=== PATIENT | female | born 1950 | race Caucasian/White ===

== ENCOUNTER 2023-02-18 04:28 | Emergency (ER) | payer MEDICARE, SELFPAY ==
[2023-02-18] VITALS (39 sets, daily range): BP systolic 134–179; BP diastolic 76–108; PULSE 91–112; RESP 15–24; TEMP 36.5–37.6; O2SAT 95–98; BMI 17.3
--- NOTE | 2023-02-18 04:31 | ED.GENADULT ---
HPI - General Adult <Anderson Johnson MD - Last Filed: 03/01/23 07:36> General Chief complaint: Weakness Stated complaint: not eating or drinking Time Seen by Provider: 02/18/23 04:30 History of Present Illness HPI narrative: Patient is a 73-year-old female brought in accompanied by her daughter. Patient has had generalized weakness both patient and her daughter provide history. She had been in bed for 5 days. The patient is having abdominal and left flank pain. She is becoming generally weak, patient does not think she is had significant oral intake, urine output or bowel movement in 5 days. She has chronic back pain that has become worse recently and is more noticeable on the left side. She is not had fevers or nausea or vomiting. Has not noted any urinary symptoms other than decreased urinary output. Has not had any recent falls. The patient does not presently have a primary care doctor is not on any regular prescription medications. Last week, prior to the onset of this the patient was driving and while she lives with her daughter is essentially independent. Daughter reports that she is become more confused recently. Old notes indicated polypharmacy and alcohol use, both the patient and her daughter deny any recent alcohol recreational drug or prescription drug use. No history of kidney disease identified previously no history of kidney stones. Related Data Previous Rx's Medication Instructions Recorded chlordiazepoxide HCl 25 mg capsule 25 mg PO Q8H #14 caps 04/18/17 hydrocodone 5 mg-acetaminophen 325 1 tab PO Q4HP PRN #20 tabs 04/18/17 mg tablet ([place]) naproxen 500 mg tablet (Naprosyn) 500 mg PO Q12H #20 tabs 04/18/17 Allergies Allergy/AdvReac Type Severity Reaction Status Date / Time lidocaine [LIDOCAINE] Allergy Unknown Verified 02/18/23 06:28 Patient History <Anderson Johnson MD - Last Filed: 03/01/23 07:36> Social History Smoking Status: Never smoker Exam <Anderson Johnson MD - Last Filed: 03/01/23 07:36> Narrative Exam Narrative: Cachectic appearing female, she is alert oriented to place and year but misses the month. Oral mucosa is dry. She is tachycardic and hypertensive not febrile. Initial Vital Signs Initial Vital Signs: Vital Signs Temperature 97.8 F 02/18/23 04:45 Pulse Rate 112 H 02/18/23 04:45 Respiratory Rate 22 02/18/23 04:45 Blood Pressure 179/108 H 02/18/23 04:45 Pulse Oximetry 98 02/18/23 04:45 Oxygen Delivery Method Room Air 02/18/23 04:45 HENSC Head: normocephalic and atraumatic Mouth: No moist mucous membranes Eyes Pupils: PERRL EOM: EOM intact bilaterally Neck Other: Neck is supple Resp Effort & Inspection: normal respiratory effort Auscultation: clear to auscultation bilaterally Cardio Other: Tachycardic, no murmur rub or gallop Other: Parra catheter placed on arrival has over a 1000 cc coming out. Normal external rectal exam, soft brown guaiac-positive stool in the vault. Has normal sphincter tone, normal perineal sensation guaiac-positive brown stool in the vault Back/Spine/Pelvis Other: No focal tenderness of the thoracic or lumbar spine Skin Rashes: no rashes Wounds: no wounds Neuro General: patient alert, patient awake, oriented (Place an ear), no meningeal signs and no focal motor deficits Cognition: abnormal cognition Speech: speech normal Motor: muscle tone normal throughout and strength 5/5 throughout DTR's: Rt Patellar: 2+ and Lt Patellar: 2+ Extrem General: normal to inspection Psych Mental Status: mental status grossly normal Mood: congruent mood <Nikki Diaz DO - Last Filed: 02/18/23 18:03> Initial Vital Signs Initial Vital Signs: Vital Signs Temperature 97.8 F 02/18/23 04:45 Pulse Rate 112 H 02/18/23 04:45 Respiratory Rate 22 02/18/23 04:45 Blood Pressure 179/108 H 02/18/23 04:45 Pulse Oximetry 98 02/18/23 04:45 Oxygen Delivery Method Room Air 02/18/23 04:45 Course <Anderson Johnson MD - Last Filed: 03/01/23 07:36> Orders Ordered: Discontinued Medications Sodium Chloride (Normal Saline 0.9%) 1,000 mls @ 150 mls/hr IV CONT ABRAHAM Last Infusion: 02/18/23 09:38 Dose: Infused Documented By: Infusion: 02/18/23 09:34 Dose: 0 mls/hr Documented By: Admin: 02/18/23 05:27 Dose: 150 mls/hr Documented By: BERNADINE Ceftriaxone Sodium 2,000 mg/ (Sodium Chloride) 100 mls @ 200 mls/hr IV NOW ONE Stop: 02/18/23 05:34 Last Infusion: 02/18/23 06:20 Dose: Infused Documented By: Admin: 02/18/23 05:40 Dose: 200 mls/hr Documented By: STERLING Sodium Bicarbonate 150 meq/ (Dextrose) 1,150 mls @ 200 mls/hr IV CONT ABRAHAM Last Infusion: 02/18/23 12:23 Dose: Infused Documented By: Admin: 02/18/23 06:19 Dose: 200 mls/hr Documented By: NICK Sodium Chloride (Normal Saline 0.9%) 1,000 mls @ 150 mls/hr IV CONT ABRAHAM Last Admin: 02/18/23 12:49 Dose: 150 mls/hr Documented By: KENYETTA Morphine Sulfate (Morphine 2 Mg/Ml Inj) 2 mg IV NOW ONE Stop: 02/18/23 07:34 Last Admin: 02/18/23 07:40 Dose: 2 mg Documented By: KENYETTA Morphine Sulfate (Morphine 2 Mg/Ml Inj) 2 mg IV NOW ONE Stop: 02/18/23 16:25 Last Admin: 02/18/23 16:41 Dose: 2 mg Documented By: KENYETTA Vital Signs Vital signs: Vital Signs - 8 hr 02/18/23 10:15 02/18/23 10:30 02/18/23 10:30 Temperature 98.6 F 98.6 F Pulse Rate 100 H 100 H Respiratory Rate 21 19 Blood Pressure 150/86 H Pulse Oximetry 98 98 02/18/23 10:45 02/18/23 11:00 02/18/23 11:00 Temperature 98.8 F 98.8 F Pulse Rate 101 H 101 H Respiratory Rate 22 20 Blood Pressure 154/83 H Pulse Oximetry 97 98 02/18/23 11:15 02/18/23 11:30 02/18/23 11:30 Temperature 99.0 F 99.0 F Pulse Rate 106 H 104 H Respiratory Rate 21 21 Blood Pressure 139/86 Pulse Oximetry 97 97 02/18/23 11:45 02/18/23 12:00 02/18/23 12:00 Temperature 99.0 F 99.0 F Pulse Rate 103 H 101 H Respiratory Rate 18 19 Blood Pressure 142/83 H Pulse Oximetry 97 97 02/18/23 12:15 02/18/23 12:30 02/18/23 12:30 Temperature 99.1 F 99.1 F Pulse Rate 106 H 102 H Respiratory Rate 21 20 Blood Pressure 139/86 Pulse Oximetry 96 96 02/18/23 12:45 02/18/23 13:00 02/18/23 13:00 Temperature 99.1 F 99.3 F Pulse Rate 105 H 101 H Respiratory Rate 21 19 Blood Pressure 144/76 H Pulse Oximetry 96 97 02/18/23 13:15 02/18/23 13:30 02/18/23 13:30 Temperature 99.3 F 99.3 F Pulse Rate 103 H 103 H Respiratory Rate 24 23 Blood Pressure 148/80 H Pulse Oximetry 96 96 02/18/23 13:45 02/18/23 14:00 02/18/23 14:00 Temperature 99.3 F 99.5 F Pulse Rate 102 H 103 H Respiratory Rate 21 20 Blood Pressure 137/83 Pulse Oximetry 96 97 02/18/23 14:15 02/18/23 14:30 02/18/23 14:30 Temperature 99.5 F 99.5 F Pulse Rate 102 H 99 H Respiratory Rate 21 19 Blood Pressure 141/80 H Pulse Oximetry 97 97 02/18/23 14:45 02/18/23 15:00 02/18/23 15:00 Temperature 99.5 F 99.7 F H Pulse Rate 91 H 103 H Respiratory Rate 15 19 Blood Pressure 139/79 Pulse Oximetry 96 96 02/18/23 15:15 02/18/23 15:30 02/18/23 15:30 Temperature 99.7 F H 99.7 F H Pulse Rate 103 H 104 H Respiratory Rate 18 20 Blood Pressure 147/82 H Pulse Oximetry 96 97 02/18/23 15:45 02/18/23 16:00 02/18/23 16:00 Temperature 99.7 F H 99.7 F H Pulse Rate 109 H Respiratory Rate 20 20 Blood Pressure 139/91 H Pulse Oximetry 97 97 02/18/23 16:15 02/18/23 16:30 02/18/23 16:30 Temperature 99.7 F H 99.7 F H Pulse Rate 107 H 108 H Respiratory Rate 22 22 Blood Pressure 144/98 H Pulse Oximetry 97 96 02/18/23 16:45 02/18/23 17:00 02/18/23 17:00 Temperature 99.7 F H 99.7 F H Pulse Rate 110 H 111 H Respiratory Rate 20 20 Blood Pressure 134/83 Pulse Oximetry 96 95 <Nikki Diaz, - Last Filed: 02/18/23 18:03> Orders Ordered: Discontinued Medications Sodium Chloride (Normal Saline 0.9%) 1,000 mls @ 150 mls/hr IV CONT ABRAHAM Last Infusion: 02/18/23 09:38 Dose: Infused Documented By: Infusion: 02/18/23 09:34 Dose: 0 mls/hr Documented By: Admin: 02/18/23 05:27 Dose: 150 mls/hr Documented By: BERNADINE Ceftriaxone Sodium 2,000 mg/ (Sodium Chloride) 100 mls @ 200 mls/hr IV NOW ONE Stop: 02/18/23 05:34 Last Infusion: 02/18/23 06:20 Dose: Infused Documented By: Admin: 02/18/23 05:40 Dose: 200 mls/hr Documented By: STERLING Sodium Bicarbonate 150 meq/ (Dextrose) 1,150 mls @ 200 mls/hr IV CONT ABRAHAM Last Infusion: 02/18/23 12:23 Dose: Infused Documented By: Admin: 02/18/23 06:19 Dose: 200 mls/hr Documented By: NICK Sodium Chloride (Normal Saline 0.9%) 1,000 mls @ 150 mls/hr IV CONT ABRAHAM Last Admin: 02/18/23 12:49 Dose: 150 mls/hr Documented By: KENYETTA Morphine Sulfate (Morphine 2 Mg/Ml Inj) 2 mg IV NOW ONE Stop: 02/18/23 07:34 Last Admin: 02/18/23 07:40 Dose: 2 mg Documented By: KENYETTA Morphine Sulfate (Morphine 2 Mg/Ml Inj) 2 mg IV NOW ONE Stop: 02/18/23 16:25 Last Admin: 02/18/23 16:41 Dose: 2 mg Documented By: KENYETTA Vital Signs Vital signs: Vital Signs - 8 hr 02/18/23 10:15 02/18/23 10:30 02/18/23 10:30 Temperature 98.6 F 98.6 F Pulse Rate 100 H 100 H Respiratory Rate 21 19 Blood Pressure 150/86 H Pulse Oximetry 98 98 02/18/23 10:45 02/18/23 11:00 02/18/23 11:00 Temperature 98.8 F 98.8 F Pulse Rate 101 H 101 H Respiratory Rate 22 20 Blood Pressure 154/83 H Pulse Oximetry 97 98 02/18/23 11:15 02/18/23 11:30 02/18/23 11:30 Temperature 99.0 F 99.0 F Pulse Rate 106 H 104 H Respiratory Rate 21 21 Blood Pressure 139/86 Pulse Oximetry 97 97 02/18/23 11:45 02/18/23 12:00 02/18/23 12:00 Temperature 99.0 F 99.0 F Pulse Rate 103 H 101 H Respiratory Rate 18 19 Blood Pressure 142/83 H Pulse Oximetry 97 97 02/18/23 12:15 02/18/23 12:30 02/18/23 12:30 Temperature 99.1 F 99.1 F Pulse Rate 106 H 102 H Respiratory Rate 21 20 Blood Pressure 139/86 Pulse Oximetry 96 96 02/18/23 12:45 02/18/23 13:00 02/18/23 13:00 Temperature 99.1 F 99.3 F Pulse Rate 105 H 101 H Respiratory Rate 21 19 Blood Pressure 144/76 H Pulse Oximetry 96 97 02/18/23 13:15 02/18/23 13:30 02/18/23 13:30 Temperature 99.3 F 99.3 F Pulse Rate 103 H 103 H Respiratory Rate 24 23 Blood Pressure 148/80 H Pulse Oximetry 96 96 02/18/23 13:45 02/18/23 14:00 02/18/23 14:00 Temperature 99.3 F 99.5 F Pulse Rate 102 H 103 H Respiratory Rate 21 20 Blood Pressure 137/83 Pulse Oximetry 96 97 02/18/23 14:15 02/18/23 14:30 02/18/23 14:30 Temperature 99.5 F 99.5 F Pulse Rate 102 H 99 H Respiratory Rate 21 19 Blood Pressure 141/80 H Pulse Oximetry 97 97 02/18/23 14:45 02/18/23 15:00 02/18/23 15:00 Temperature 99.5 F 99.7 F H Pulse Rate 91 H 103 H Respiratory Rate 15 19 Blood Pressure 139/79 Pulse Oximetry 96 96 02/18/23 15:15 02/18/23 15:30 02/18/23 15:30 Temperature 99.7 F H 99.7 F H Pulse Rate 103 H 104 H Respiratory Rate 18 20 Blood Pressure 147/82 H Pulse Oximetry 96 97 02/18/23 15:45 02/18/23 16:00 02/18/23 16:00 Temperature 99.7 F H 99.7 F H Pulse Rate 109 H Respiratory Rate 20 20 Blood Pressure 139/91 H Pulse Oximetry 97 97 02/18/23 16:15 02/18/23 16:30 02/18/23 16:30 Temperature 99.7 F H 99.7 F H Pulse Rate 107 H 108 H Respiratory Rate 22 22 Blood Pressure 144/98 H Pulse Oximetry 97 96 02/18/23 16:45 02/18/23 17:00 02/18/23 17:00 Temperature 99.7 F H 99.7 F H Pulse Rate 110 H 111 H Respiratory Rate 20 20 Blood Pressure 134/83 Pulse Oximetry 96 95 Medical Decision Making <Anderson Johnson MD - Last Filed: 03/01/23 07:36> Lab Data Lab results narrative: Labs are remarkable for presumed kidney injury with a high BUN to creatinine ratio and a creatinine greater than 8. Bicarbonate is 6 sodium is 131 potassium is mildly elevated at 5.8. [place] a [place] [id number]. Urinalysis has evidence of infection with positive nitrites and bacteria present Troponin is elevated, in the setting of renal failure without chest pain I suspect that this is related to her kidney failure 02/18/23 10:00 02/18/23 13:53 Labs: Lab Results 02/18/23 02/18/23 02/18/23 Range/Units 04:45 05:13 08:45 WBC 18.3 H (4.5-11.0) X10^3/uL RBC 3.87 L (4.0-5.2) X10^6/uL Hgb 11.8 L (12.0-16.0) g/dL Hct 35.5 L (36-46) % MCV 91.8 (80-100) fL MCH 30.4 (26-34) PG MCHC 33.2 (30-36) % RDW 13.1 (11.6-14.8) % Plt Count 228 (150-400) X10^3/uL Neut % (Auto) 93.2 H (50-75) % Lymph % (Auto) 1.9 L (25-40) % [place] % (Auto) 4.5 (3-14) % Eos % (Auto) 0.0 L (2-4) % Baso % (Auto) 0.4 (0-2) % Neut # (Auto) 91936 H (5613-1298) /uL Lymph # (Auto) 300 L (9411-6249) /uL [place] # (Auto) 800 (0-900) /uL Eos # (Auto) 0 (0-450) /uL Baso # (Auto) 100 (0-100) /uL PT (10.1-12.7) SECONDS INR (0.9-1.3) APTT (26-36) SECONDS Sodium 131 L 133 L (137-145) mmol/L Potassium 5.8 H 3.8 D (3.4-5.1) mmol/L Chloride 94 L 100 (98-107) mmol/L Carbon Dioxide 6 L* 15 L (22-32) mmol/L BUN 127 H* 84 H (7-17) mg/dL Creatinine 8.07 H* 4.25 H (0.52-1.04) mg/dL Estimated GFR 5 L 10 L (>60) mL/min BUN/Creatinine Ratio 15.7 19.8 (6-22) Glucose 111 H 161 H (80-110) mg/dL Lactate 1.4 (0.7-2.1) mmol/L Calcium 10.1 8.8 (8.4-10.2) mg/dL Total Bilirubin 1.3 (0.2-1.3) mg/dL AST 28 (14-36) IU/L ALT 14 (<35) IU/L Alkaline Phosphatase 97 (38-126) U/L Total Creatine Kinase 102 (30-135) U/L Troponin I 0.275 H* (0.01-0.034) ng/mL Total Protein 7.8 (6.3-8.2) g/dL Albumin 4.6 (3.5-5.0) g/dL Globulin 3.2 (1.7-4.1) g/dL Albumin/Globulin Ratio 1.4 (1.0-2.8) TSH 0.178 L (0.47-4.68) uIU/mL Urine Color Yellow Urine Appearance Cloudy Urine pH 7.0 (4.5-8.0) Ur Specific [place] 1.015 (1.000-1.035) Urine Protein 1+ H (Negative) Urine Glucose (UA) Negative (Negative) g/dL Urine Ketones Trace H (NEGATIVE) Urine Occult Blood Trace-intact (Negative) Urine Nitrate Positive H (Negative) Urine Bilirubin Negative (NEGATIVE) Urine Urobilinogen 0.2 (0.2) E.U./dL Ur Leukocyte Esterase Negative (NEGATIVE) Urine RBC None seen (0-5/HPF) Urine WBC 1-5/hpf (0-5/HPF) Ur Squamous Epith Cells 0-1 /hpf (0-5/HPF) Urine Bacteria Many (>30) H (None) U Opiates 300ng/mL cut Negative (Negative) Ur Oxycodone Screen Negative (Negative) Urine Methadone Screen Negative (Negative) Acetaminophen < 10 (10-30) ug/mL Ur Barbiturates Screen Negative (Negative) U Tricyclic Antidepress Negative (Negative) Ur Phencyclidine Scrn Negative (Negative) Ur Amphetamines Screen Negative (Negative) U Methamphetamines Scrn Negative (Negative) Ur MDMA Scrn (Ecstasy) Negative (Negative) U Benzodiazepines Scrn Negative (Negative) Urine Cocaine Screen Negative (Negative) U Marijuana (THC) Screen Negative (Negative) Ethyl Alcohol < 10 ( - 10) mg/dL 02/18/23 02/18/23 02/18/23 Range/Units 10:00 10:07 13:53 WBC (4.5-11.0) X10^3/uL RBC (4.0-5.2) X10^6/uL Hgb 10.3 L (12.0-16.0) g/dL Hct 30.2 L (36-46) % MCV (80-100) fL MCH (26-34) PG MCHC (30-36) % RDW (11.6-14.8) % Plt Count (150-400) X10^3/uL Neut % (Auto) (50-75) % Lymph % (Auto) (25-40) % [place] % (Auto) (3-14) % Eos % (Auto) (2-4) % Baso % (Auto) (0-2) % Neut # (Auto) (0536-0945) /uL Lymph # (Auto) (7733-7030) /uL [place] # (Auto) (0-900) /uL Eos # (Auto) (0-450) /uL Baso # (Auto) (0-100) /uL PT 12.5 (10.1-12.7) SECONDS INR 1.1 (0.9-1.3) APTT 24 L (26-36) SECONDS Sodium 135 L (137-145) mmol/L Potassium 3.1 L (3.4-5.1) mmol/L Chloride 103 (98-107) mmol/L Carbon Dioxide 23 (22-32) mmol/L BUN 53 H (7-17) mg/dL Creatinine 1.89 H (0.52-1.04) mg/dL Estimated GFR 28 L (>60) mL/min BUN/Creatinine Ratio 28.0 H (6-22) Glucose 112 H (80-110) mg/dL Lactate (0.7-2.1) mmol/L Calcium 8.7 (8.4-10.2) mg/dL Total Bilirubin (0.2-1.3) mg/dL AST (14-36) IU/L ALT (<35) IU/L Alkaline Phosphatase (38-126) U/L Total Creatine Kinase (30-135) U/L Troponin I (0.01-0.034) ng/mL Total Protein (6.3-8.2) g/dL Albumin (3.5-5.0) g/dL Globulin (1.7-4.1) g/dL Albumin/Globulin Ratio (1.0-2.8) TSH (0.47-4.68) uIU/mL Urine Color Urine Appearance Urine pH (4.5-8.0) Ur Specific [place] (1.000-1.035) Urine Protein (Negative) Urine Glucose (UA) (Negative) g/dL Urine Ketones (NEGATIVE) Urine Occult Blood (Negative) Urine Nitrate (Negative) Urine Bilirubin (NEGATIVE) Urine Urobilinogen (0.2) E.U./dL Ur Leukocyte Esterase (NEGATIVE) Urine RBC (0-5/HPF) Urine WBC (0-5/HPF) Ur Squamous Epith Cells (0-5/HPF) Urine Bacteria (None) U Opiates 300ng/mL cut (Negative) Ur Oxycodone Screen (Negative) Urine Methadone Screen (Negative) Acetaminophen (10-30) ug/mL Ur Barbiturates Screen (Negative) U Tricyclic Antidepress (Negative) Ur Phencyclidine Scrn (Negative) Ur Amphetamines Screen (Negative) U Methamphetamines Scrn (Negative) Ur MDMA Scrn (Ecstasy) (Negative) U Benzodiazepines Scrn (Negative) Urine Cocaine Screen (Negative) U Marijuana (THC) Screen (Negative) Ethyl Alcohol ( - 10) mg/dL Point of Care Testing Glucose POC 107 Point of care testing: Point of Care Testing Glucose POC 107 Imaging Data Chest x-ray: My Impression: Portable chest x-ray, no acute disease on my initial review of imaging Radiologist's Impression: ?bronchial wall thickening suggesting bronchitis? CT scan - abdomen/pelvis: My Impression: My initial review of the noncontrast CT abdomen and pelvis, I think she has bilateral hydronephrosis, there is mass versus extravasation of urine around the left kidney no clear ureteral stone, calcified mass in the left hemipelvis possibly ovarian CT scan - head: My Impression: Independently reviewed noncontrast head CT, no acute findings ECG Data Interpretation: EKG shows sinus tachycardia at 105 intervals are normal, T-waves are prominent raising concern for hyperkalemia no acute ischemic change 1 pair of PVCs MDM Narrative Medical decision making narrative: A 73-year-old female with chronic back pain but really no other active medical problems presenting with decreased urine output generalized weakness and confusion for about 5 days. She is not hypotensive on arrival her lactic acid is normal she is not febrile but she does have a leukocytosis. I think she has a urinary tract infection but does not appear to be septic. She had over a 1000 cc of urine in her bladder, she was not voiding spontaneously I suspect that her renal failure is related to urine retention. She has secondary hyperkalemia which is mild not clearly associated with peak T-waves and is being treated with IV bicarbonate and fluids. Her urine does show evidence of infection she was given IV ceftriaxone. <Nikki Diaz, DO - Last Filed: 02/18/23 18:03> Lab Data Labs: Lab Results 02/18/23 02/18/23 02/18/23 Range/Units 04:45 05:13 08:45 WBC 18.3 H (4.5-11.0) X10^3/uL RBC 3.87 L (4.0-5.2) X10^6/uL Hgb 11.8 L (12.0-16.0) g/dL Hct 35.5 L (36-46) % MCV 91.8 (80-100) fL MCH 30.4 (26-34) PG MCHC 33.2 (30-36) % RDW 13.1 (11.6-14.8) % Plt Count 228 (150-400) X10^3/uL Neut % (Auto) 93.2 H (50-75) % Lymph % (Auto) 1.9 L (25-40) % [place] % (Auto) 4.5 (3-14) % Eos % (Auto) 0.0 L (2-4) % Baso % (Auto) 0.4 (0-2) % Neut # (Auto) 32807 H (3770-5989) /uL Lymph # (Auto) 300 L (4411-8695) /uL [place] # (Auto) 800 (0-900) /uL Eos # (Auto) 0 (0-450) /uL Baso # (Auto) 100 (0-100) /uL PT (10.1-12.7) SECONDS INR (0.9-1.3) APTT (26-36) SECONDS Sodium 131 L 133 L (137-145) mmol/L Potassium 5.8 H 3.8 D (3.4-5.1) mmol/L Chloride 94 L 100 (98-107) mmol/L Carbon Dioxide 6 L* 15 L (22-32) mmol/L BUN 127 H* 84 H (7-17) mg/dL Creatinine 8.07 H* 4.25 H (0.52-1.04) mg/dL Estimated GFR 5 L 10 L (>60) mL/min BUN/Creatinine Ratio 15.7 19.8 (6-22) Glucose 111 H 161 H (80-110) mg/dL Lactate 1.4 (0.7-2.1) mmol/L Calcium 10.1 8.8 (8.4-10.2) mg/dL Total Bilirubin 1.3 (0.2-1.3) mg/dL AST 28 (14-36) IU/L ALT 14 (<35) IU/L Alkaline Phosphatase 97 (38-126) U/L Total Creatine Kinase 102 (30-135) U/L Troponin I 0.275 H* (0.01-0.034) ng/mL Total Protein 7.8 (6.3-8.2) g/dL Albumin 4.6 (3.5-5.0) g/dL Globulin 3.2 (1.7-4.1) g/dL Albumin/Globulin Ratio 1.4 (1.0-2.8) TSH 0.178 L (0.47-4.68) uIU/mL Urine Color Yellow Urine Appearance Cloudy Urine pH 7.0 (4.5-8.0) Ur Specific [place] 1.015 (1.000-1.035) Urine Protein 1+ H (Negative) Urine Glucose (UA) Negative (Negative) g/dL Urine Ketones Trace H (NEGATIVE) Urine Occult Blood Trace-intact (Negative) Urine Nitrate Positive H (Negative) Urine Bilirubin Negative (NEGATIVE) Urine Urobilinogen 0.2 (0.2) E.U./dL Ur Leukocyte Esterase Negative (NEGATIVE) Urine RBC None seen (0-5/HPF) Urine WBC 1-5/hpf (0-5/HPF) Ur Squamous Epith Cells 0-1 /hpf (0-5/HPF) Urine Bacteria Many (>30) H (None) U Opiates 300ng/mL cut Negative (Negative) Ur Oxycodone Screen Negative (Negative) Urine Methadone Screen Negative (Negative) Acetaminophen < 10 (10-30) ug/mL Ur Barbiturates Screen Negative (Negative) U Tricyclic Antidepress Negative (Negative) Ur Phencyclidine Scrn Negative (Negative) Ur Amphetamines Screen Negative (Negative) U Methamphetamines Scrn Negative (Negative) Ur MDMA Scrn (Ecstasy) Negative (Negative) U Benzodiazepines Scrn Negative (Negative) Urine Cocaine Screen Negative (Negative) U Marijuana (THC) Screen Negative (Negative) Ethyl Alcohol < 10 ( - 10) mg/dL 02/18/23 02/18/23 02/18/23 Range/Units 10:00 10:07 13:53 WBC (4.5-11.0) X10^3/uL RBC (4.0-5.2) X10^6/uL Hgb 10.3 L (12.0-16.0) g/dL Hct 30.2 L (36-46) % MCV (80-100) fL MCH (26-34) PG MCHC (30-36) % RDW (11.6-14.8) % Plt Count (150-400) X10^3/uL Neut % (Auto) (50-75) % Lymph % (Auto) (25-40) % [place] % (Auto) (3-14) % Eos % (Auto) (2-4) % Baso % (Auto) (0-2) % Neut # (Auto) (9633-0983) /uL Lymph # (Auto) (0427-8176) /uL [place] # (Auto) (0-900) /uL Eos # (Auto) (0-450) /uL Baso # (Auto) (0-100) /uL PT 12.5 (10.1-12.7) SECONDS INR 1.1 (0.9-1.3) APTT 24 L (26-36) SECONDS Sodium 135 L (137-145) mmol/L Potassium 3.1 L (3.4-5.1) mmol/L Chloride 103 (98-107) mmol/L Carbon Dioxide 23 (22-32) mmol/L BUN 53 H (7-17) mg/dL Creatinine 1.89 H (0.52-1.04) mg/dL Estimated GFR 28 L (>60) mL/min BUN/Creatinine Ratio 28.0 H (6-22) Glucose 112 H (80-110) mg/dL Lactate (0.7-2.1) mmol/L Calcium 8.7 (8.4-10.2) mg/dL Total Bilirubin (0.2-1.3) mg/dL AST (14-36) IU/L ALT (<35) IU/L Alkaline Phosphatase (38-126) U/L Total Creatine Kinase (30-135) U/L Troponin I (0.01-0.034) ng/mL Total Protein (6.3-8.2) g/dL Albumin (3.5-5.0) g/dL Globulin (1.7-4.1) g/dL Albumin/Globulin Ratio (1.0-2.8) TSH (0.47-4.68) uIU/mL Urine Color Urine Appearance Urine pH (4.5-8.0) Ur Specific [place] (1.000-1.035) Urine Protein (Negative) Urine Glucose (UA) (Negative) g/dL Urine Ketones (NEGATIVE) Urine Occult Blood (Negative) Urine Nitrate (Negative) Urine Bilirubin (NEGATIVE) Urine Urobilinogen (0.2) E.U./dL Ur Leukocyte Esterase (NEGATIVE) Urine RBC (0-5/HPF) Urine WBC (0-5/HPF) Ur Squamous Epith Cells (0-5/HPF) Urine Bacteria (None) U Opiates 300ng/mL cut (Negative) Ur Oxycodone Screen (Negative) Urine Methadone Screen (Negative) Acetaminophen (10-30) ug/mL Ur Barbiturates Screen (Negative) U Tricyclic Antidepress (Negative) Ur Phencyclidine Scrn (Negative) Ur Amphetamines Screen (Negative) U Methamphetamines Scrn (Negative) Ur MDMA Scrn (Ecstasy) (Negative) U Benzodiazepines Scrn (Negative) Urine Cocaine Screen (Negative) U Marijuana (THC) Screen (Negative) Ethyl Alcohol ( - 10) mg/dL Point of Care Testing Glucose POC 107 Point of care testing: Point of Care Testing Glucose POC 107 MDM Narrative Medical decision making narrative: A 73-year-old female with chronic back pain but really no other active medical problems presenting with decreased urine output generalized weakness and confusion for about 5 days. She is not hypotensive on arrival her lactic acid is normal she is not febrile but she does have a leukocytosis. I think she has a urinary tract infection but does not appear to be septic. She had over a 1000 cc of urine in her bladder, she was not voiding spontaneously I suspect that her renal failure is related to urine retention. She has secondary hyperkalemia which is mild not clearly associated with peak T-waves and is being treated with IV bicarbonate and fluids. Her urine does show evidence of infection she was given IV ceftriaxone. Dr. Diaz: Received sign-out from Dr. Johnson I have seen evaluated patient myself. She is typically very independent drives getting around until 1 week ago when she would sudden onset back pain she was unable to get and out of bed she laid in bed for 5 days. Blood work reveals acute kidney injury with a creatinine 8.0 BUN 127, potassium 5.[address] Johnson and I reviewed CT are cells there is definitely venous abnormality in the left kidney area which is where she is tender. Cancer renal rupture. However real Radiology read it as peritoneal hemorrhage. With questionable active arterial extravasation recommending a CTA. Moderate bilateral hydronephrosis. This does not clinically correlate not hypotensive hemoglobin hematocrit are actually normal. Waiting for over-read. 8:[address] Cleary, local Radiology actually agrees that this is probably some sort of hemorrhage. Difficult to tell aware of renal function. Hesitant for any sort of imaging with contrast due to acute kidney injury. 8:15 Dr. Beyer, nephrology updated patient's symptoms test results agrees to probably hold off if stable maybe wait 24 hours assess renal function. At this time can be transferred to [facility] 10am , a [facility] hospitalist updated patient's symptoms test results accepts patient waiting for bed 10:30 Dr. Bradford, hospitalist at [facility] updated patient's symptoms test results accepts patient waiting for bed Patient remains stable in the emergency department in fact blood work has improved significantly creatinine is down 1.8. She is been accepted at [facility] bed has been given and she is going to be transferred. There is still concern for retroperitoneal hematoma. No change in hemoglobin. Critical Care Time <Nikki Diaz DO - Last Filed: 02/18/23 18:03> Critical Care Time Critical Care Time: Yes Total Critical Care Time: 70 Attestation: The high probability of a clinically significant, sudden or life threatening deterioration of the [cardiovascular] system(s) required my full and direct attention, intervention and personal management. The aggregate critical care time was 70 minutes. This time is in addition to time spent performing reported procedures but includes the following: [x] Data Review and interpretation [x] Patient assessment and monitoring of vital signs [x] Documentation [x] Medication orders and management Discharge Plan Departure Patient Disposition: [facility] Clinical Impression: Retroperitoneal hematoma, Acute kidney injury Prescriptions: No Action hydrocodone-acetaminophen [[place]] 5 MG/325 MG tablet 1 tab PO Q4HP PRNQty: 20 0RF chlordiazepoxide HCl 25 MG capsule 25 mg PO Q8H Qty: 14 0RF naproxen [Naprosyn] 500 MG tablet 500 mg PO Q12H Qty: 20 0RF Referrals: Bria Min ARNP [Primary Care Provider] -
--- NOTE | 2023-02-18 04:44 | DI.CT.S_ITS ---
PROCEDURE: CT HEAD/BRAIN WO CON INDICATIONS: altered mental status TECHNIQUE: Noncontrast 4.5 mm thick angled axial sections acquired from the foramen magnum to the vertex, with coronal and sagittal reformats. For radiation dose reduction, the following was used: automated exposure control, adjustment of mA and/or kV according to patient size. COMPARISON: [facility], CT, HEAD WITHOUT CONTRAST, 04/18/2017, 13:56. FINDINGS: Image quality: Excellent. CSF spaces: Basal cisterns are patent. No extra-axial fluid collections. The ventricles are symmetric in size and shape. Brain: No intracranial bleeds or masses. There is cerebral volume loss for age, with resultant ventricular and sulcal prominence. There are periventricular and deep white matter chronic small vessel ischemic changes. There is intracranial internal carotid artery atherosclerosis. Skull and face: Calvarium and visualized facial bones appear intact, without suspicious lesions. Sinuses: Visualized sinuses and mastoids are clear. IMPRESSION: 1. No acute intracranial abnormalities. 2. Cerebral volume loss and chronic microvascular ischemic changes. No significant discrepancy with the night warehouse manager radiology preliminary report. Dictated by: Alyse Cleary M.D. on 02/18/2023 at 7:48 Approved by: Alyse Cleary M.D. on 02/18/2023 at 7:49
--- NOTE | 2023-02-18 04:45 | DI.RAD.S_ITS ---
PROCEDURE: XR CHEST 1V INDICATIONS: gen weakness TECHNIQUE: One view of the chest was acquired. COMPARISON: None. FINDINGS: Surgical changes and devices: None. Lungs and pleura: Mild bilateral interstitial prominence. No focal consolidation. Blunting of the left costophrenic angle, suspicious for small left pleural effusion. No pneumothorax. Mediastinum: Mediastinal contours appear normal. Heart size is normal. Bones and chest wall: No suspicious bony lesions. Overlying soft tissues appear unremarkable. IMPRESSION: 1. Mild bilateral interstitial prominence. No focal consolidation. 2. Suspect small left pleural effusion. No significant discrepancy with the fast food shift lead radiology preliminary report. Dictated by: Alyse Cleary M.D. on 02/18/2023 at 9:10 Approved by: Alyse Cleary M.D. on 02/18/2023 at 9:14
[2023-02-18 05:00] LABS: Add Manual Diff / Slide Review NO; Basophils Absolute Auto 100 /uL (0-100); Basophils Percent Auto 0.4 % (0-2); Eosinophils Absolute Auto 0 /uL (0-450); Hematocrit 35.5 % (36-46); Hemoglobin 11.8 g/dL (12.0-16.0); Lymphocytes Absolute Auto 300 /uL (1100-4500); Lymphocytes Percent Auto 1.9 % (25-40); Mean Corpuscular HGB Conc 33.2 % (30-36); Mean Corpuscular Hemoglobin 30.4 PG (26-34); Mean Corpuscular Volume 91.8 fL (80-100); Monocytes Absolute Auto 800 /uL (0-900); Monocytes Percent Auto 4.5 % (3-14); Neutrophils Absolute Auto 17100 /uL (1500-7000); Neutrophils Percent Auto 93.2 % (50-75); Platelet Count 228 X10^3/uL (150-400); Red Blood Cell Count 3.87 X10^6/uL (4.0-5.2); Red Cell Distribution Width 13.1 % (11.6-14.8); White Blood Cell Count 18.3 X10^3/uL (4.5-11.0)
[2023-02-18 05:07] LABS: Creatine Kinase 102 U/L (30-135)
[2023-02-18 05:09] LABS: Acetaminophen < 10 ug/mL (10-30); Alanine Aminotransferase 14 IU/L (<35); Albumin 4.6 g/dL (3.5-5.0); Albumin Globulin Ratio 1.4 (1.0-2.8); Alkaline Phosphatase 97 U/L (38-126); Aspartate Aminotransferase 28 IU/L (14-36); Bilirubin Total 1.3 mg/dL (0.2-1.3); Calcium 10.1 mg/dL (8.4-10.2); Chloride 94 mmol/L (98-107); Ethanol (ETOH) < 10 mg/dL; Globulin 3.2 g/dL (1.7-4.1); Glucose 111 mg/dL (80-110); HEMOLYSIS < 15 (0-50); Lactate (Lactic Acid) 1.4 mmol/L (0.7-2.1); Sodium 131 mmol/L (137-145); Total Protein 7.8 g/dL (6.3-8.2)
[2023-02-18 05:14] LABS: Estimated Glomerular Filt Rate 5 mL/min (>60)
[2023-02-18 05:16] LABS: BUN Creatinine Ratio 15.7 (6-22); Potassium 5.8 mmol/L (3.4-5.1)
[2023-02-18 05:19] LABS: Bilirubin Urine UA NEGATIVE (NEGATIVE); Color Urine UA YELLOW; Glucose Urine UA NEGATIVE (Negative); Ketones Urine UA TRACE (NEGATIVE); Leukocyte Esterase Urine UA NEGATIVE (NEGATIVE); Nitrite Urine UA POSITIVE (Negative); Occult Blood Urine UA TRACE-INTACT (Negative); Protein Urine UA 1+ (Negative); Specific Gravity Urine UA 1.015 (1.000-1.035); Urobilinogen Urine UA 0.2 E.U./dL (0.2)
[2023-02-18 05:21] LABS: Blood Urea Nitrogen 127 mg/dL (7-17); Carbon Dioxide 6 mmol/L (22-32)
[2023-02-18 05:26] LABS: UR Morphine/Opiate cutoff 300 Negative (Negative); Ur Creatinine Normal (Normal); Ur Specific Gravity Normal (Normal); Urine Amphetamines Negative (Negative); Urine Barbiturates Negative (Negative); Urine Benzodiazepines Negative (Negative); Urine Cocaine Negative (Negative); Urine MDMA Negative (Negative); Urine Methadone Negative (Negative); Urine Methamphetamines Negative (Negative); Urine Oxycodone Negative (Negative); Urine Phencyclidine Negative (Negative); Urine Tetrahydrocannabinol Negative (Negative); Urine Tricyclic Antidepressant Negative (Negative); Urine pH Normal (Normal)
[2023-02-18] MEDS: SODIUM CHLORIDE 0.9% 1,000 ML 150 ML IV ×2 (05:27→12:49)
[2023-02-18 05:28] LABS: Appearance Urine UA CLOUDY; RBC Urine None Seen (0-5/HPF); WBC Urine 1-5/HPF (0-5/HPF)
[2023-02-18 05:29] LABS: Bacteria Urine Many (>30); Squamous Epithelial Cell Urine 0-1 /HPF (0-5/HPF)
--- NOTE | 2023-02-18 05:31 | DI.CT.S_ITS ---
PROCEDURE: CT ABDOMEN PELVIS WO CON INDICATIONS: abd pian renal failure TECHNIQUE: Axial sections were acquired from the lung bases to the pubic symphysis. Coronal and sagittal reformats were performed. For radiation dose reduction, the following was used: automated exposure control, adjustment of mA and/or kV according to patient size. COMPARISON: None. FINDINGS: Image quality: Excellent. Lung bases: There is a small left pleural effusion. Left basilar atelectasis. Heart: No significant findings. URINARY: Right Kidney: No stones. Mild pelviectasisRight Ureter: Trace ureterectasis. Left Kidney: No stones. Mild pelviectasis. There is a small amount of perinephric fluid. There is a moderate sized retroperitoneal fluid collection posterior to the left kidney. Hyperdense area within the hematoma consistent with hematoma. Left Ureter: Trace ureterectasis Bladder: Normal wall thickness. No stones. ABDOMEN: Liver: Unremarkable. Gallbladder: Unremarkable. Biliary ducts: Unremarkable. Pancreas: Unremarkable. Spleen: Unremarkable. Adrenal Glands: Unremarkable. Stomach and Bowel: Stomach, small bowel loops, and colon are unremarkable. Appendix is normal. Peritoneum: No abnormal intraperitoneal fluid. No free air. Ventral Wall: No hernia. Abdominal Nodes: No enlarged retroperitoneal or mesenteric lymph nodes. Vessels: Aorta and inferior vena cava are normal in size. PELVIS: Pelvic Organs: There is a 2.1 x 2.9 cm exophytic calcified uterine fibroid. A small focus of calcification is noted in uterus. Uterus is atrophic. Small free fluid in the cul-de-sac. Pelvic Nodes: There is a Parra catheter in the urinary bladder.. Miscellaneous: No inguinal hernias are seen. Bones: Unremarkable. IMPRESSION: 1. There is a moderate-sized left retroperitoneal hematoma, which is likely associated with the left kidney. Cannot rule out active bleeding. 2. Mild hydronephrosis and ureterectasis bilaterally. No obstructive urinary stones. 3. Small left pleural effusion. 4. Myomatous uterus with calcified uterine fibroids. No significant discrepancy with the soft shoe dancer radiology preliminary report. The result was discussed with Dr. Diaz in ER. Dictated by: Alyse Cleary M.D. on 02/18/2023 at 7:58 Approved by: Alyse Cleary M.D. on 02/18/2023 at 8:50
[2023-02-18] MEDS: cefTRIAXone 2,000 MG in SODIUM CHLORIDE 0.9% 100 ML 200 MG IV (05:40)
[2023-02-18 05:44] LABS: Thyroid Stimulating Hormone 0.178 uIU/mL (0.47-4.68)
[2023-02-18 05:55] LABS: Troponin I 0.275 ng/mL (0.01-0.034)
[2023-02-18] MEDS: SODIUM BICARB 8.4% VIAL 150 MEQ in DEXTROSE 5% WATER 1,000 ML 200 MEQ IV (06:19)
[2023-02-18] MEDS: SODIUM ZIRCONIUM CYCLOSILICATE 10 GM POWD.PACK PO (06:20)
[2023-02-18] MEDS: MORPHINE 2 MG/ML INJ IV ×2 (07:40→16:41)
--- NOTE | 2023-02-18 08:58 | PC.NURSE ---
AWS CONSULTANT NOTE: spoke to graham at [facility] pt was waitlisted by [employer] CONSULTANT Narciso spoke to katina at [facility] pt is waitlisted there @[id number] spoke to Naya at [facility] pt is waitlisted there @ 0831 spoke to Yaz at [facility] pt is waitlisted there @0840 spoke to Federica at faxed facesheet @[phone] pushed images and they should be reaching out spoke to Ricarda at [facility] was told to call back this afternoon @[phone] spoke to Gay at [facility] was told they have no beds @[phone]
[2023-02-18 09:38] LABS: BUN Creatinine Ratio 19.8 (6-22); Blood Urea Nitrogen 84 mg/dL (7-17); Calcium 8.8 mg/dL (8.4-10.2); Carbon Dioxide 15 mmol/L (22-32); Chloride 100 mmol/L (98-107); Estimated Glomerular Filt Rate 10 mL/min (>60); Glucose 161 mg/dL (80-110); HEMOLYSIS < 15 (0-50); Potassium 3.8 mmol/L (3.4-5.1); Sodium 133 mmol/L (137-145)
[2023-02-18 10:16] LABS: Hematocrit 30.2 % (36-46); Hemoglobin 10.3 g/dL (12.0-16.0)
[2023-02-18 10:28] LABS: INR 1.1 (0.9-1.3); Prothrombin Time 12.5 SECONDS (10.1-12.7)
[2023-02-18 10:31] LABS: PTT Partial Thromboplastin Tim 24 SECONDS (26-36)
[2023-02-18 14:10] LABS: Blood Urea Nitrogen 53 mg/dL (7-17); Calcium 8.7 mg/dL (8.4-10.2); Carbon Dioxide 23 mmol/L (22-32); Chloride 103 mmol/L (98-107); Estimated Glomerular Filt Rate 28 mL/min (>60); Glucose 112 mg/dL (80-110); HEMOLYSIS < 15 (0-50); Potassium 3.1 mmol/L (3.4-5.1); Sodium 135 mmol/L (137-145)
== END 2023-02-18 17:06 | disposition short-term general hospital (02) ==
PROVIDERS: Emergency Medicine; Emergency Provider Emergency Medicine; Family Provider Nurse Practitioner Family; PCP Nurse Practitioner Family
DX: K68.3 Retroperitoneal hematoma (principal); N17.9 Acute kidney failure, unspecified; R33.8 Other retention of urine; E87.5 Hyperkalemia
CPT/HCPCS: 36415; 70450; 71045; 74176; 80048; 80053; 80305; 80320; 80329; 81001; 82550; 82962; 83605; 84443; 84484; 85014; 85018; 85025; 85610; 85730; 87040; 87086; 93005; 93010; 96365; 96366; 96367; 96375; 96376; 99285; 99291; G0480; J0696; J2270

== ENCOUNTER 2023-10-04 10:41 | Emergency (ER) | payer MEDICARE, SELFPAY ==
[2023-10-04] VITALS (14 sets, daily range): BP systolic 136–167; BP diastolic 79–102; PULSE 65–98; RESP 22; TEMP 38.1; O2SAT 91–99
--- NOTE | 2023-10-04 10:46 | ED.GENADULT ---
HPI - General Adult General Chief complaint: Altered Mental Status Stated complaint: AMS Time Seen by Provider: 10/04/23 10:43 Source: family and EMS Mode of arrival: EMS Limitations: altered mental status History of Present Illness HPI narrative: Patient is a 73-year-old female. Who arrives to the emergency department by EMS for evaluation of several days of decreased activity and ?lethargy? patient was unwilling/unable to provide any HPI. She would not answer any questions. She did tell the paramedics that she did not want to come to the emergency department but did not resist when they picked her and put her on the EMS gurney. Here in the ER she would not answer any questions. She did tell nursing staff that she just wanted to go home. The patient's daughter is at bedside. Daughter states that she takes no medications. No diagnosed medical problems. At baseline is ambulatory to include feeding herself, dressing herself and walking without assistance. In February she was seen here in the emergency department and subsequently transferred to a tertiary care center secondary to an acute renal failure and urinary retention. Patient's daughter states they went to this facility. She was subsequently discharged home. She has been returning to that facility to have a catheter changed every month but has not followed up other than that. Does not have a primary care doctor. Patient's daughter states that she has been providing food and water to the patient. She stated that she bought a [id number] kit and tested the patient's urine and states she did have a urinary tract infection based on the results of this. The current urinary catheter has been in for ?longer than it should be? according to the daughter. She stated that the patient no longer wanted to go down to [place] to have the catheter changed. Related Data Previous Rx's Medication Instructions Recorded chlordiazepoxide HCl 25 mg capsule 25 mg PO Q8H #14 caps 04/18/17 hydrocodone 5 mg-acetaminophen 325 1 tab PO Q4HP PRN #20 tabs 04/18/17 mg tablet (Centerpoint) naproxen 500 mg tablet (Naprosyn) 500 mg PO Q12H #20 tabs 04/18/17 Allergies Allergy/AdvReac Type Severity Reaction Status Date / Time lidocaine [LIDOCAINE] Allergy Unknown Verified 02/18/23 06:28 Review of Systems Review of Systems Narrative: See HPI. Patient did not provide any HPI or review of systems. Patient History Social History Smoking Status: Never smoker Smoking Status: Never smoker Substance Use Type: does not use Exam Initial Vital Signs Initial Vital Signs: Vital Signs Blood Pressure 167/102 H 10/04/23 10:49 Const General: disheveled and frail appearing HENMT Head: normal to inspection and normocephalic Resp Effort & Inspection: normal respiratory effort Auscultation: clear to auscultation bilaterally Cardio Rate: regular rate Rhythm: regular rhythm GI Inspection: normal to inspection Skin General: no rashes or lesions noted Neuro General: patient alert and patient awake Other: Patient would not answer any orientation questions. Would not follow any commands. Extrem Other: No gross deformities Scores GCS Teresa coma scale eye opening: Spontaneous Teresa coma scale verbal response: None [place] coma scale motor response: None Teresa coma scale total score: 6 Course Orders Ordered: ED Orders 10/04/23 10:55 XR chest 1V Stat EKG-12 Lead Stat RT Consult Eval and Treat NOW 10/04/23 11:01 CT head/brain wo con Stat 10/04/23 11:19 Complete Blood Count AUTO DIFF Stat Comprehensive Metabolic Panel Stat ETOH [Ethanol (ETOH)] Stat Lactate (Lactic Acid) Stat Lipase Stat PTT Partial Thromboplastin Adan Stat Procalcitonin Stat Prothrombin Time INR Stat 10/04/23 11:20 [place] [facility] [place] Stat 10/04/23 11:27 Blood Culture Stat Discontinued Medications Sodium Chloride (Normal Saline 0.9%) 1,000 mls @ 1,000 mls/hr IV BOLUS ONE Stop: 10/04/23 11:54 Last Infusion: 10/04/23 13:04 Dose: Infused Documented By: Admin: 10/04/23 11:49 Dose: 1,000 mls/hr Documented By: MOY Ceftriaxone Sodium 1,000 mg/ (Sodium Chloride) 100 mls @ 200 mls/hr IV NOW ONE Stop: 10/04/23 11:02 Last Infusion: 10/04/23 13:04 Dose: Infused Documented By: Admin: 10/04/23 11:49 Dose: 200 mls/hr Documented By: MOY Ondansetron HCl (Ondansetron 4 Mg/2 Ml Inj) 4 mg IV NOW PRN PRN Reason: Nausea And Vomiting Ondansetron HCl (Ondansetron 4 Mg Odt) 4 mg SL NOW PRN PRN Reason: Nausea And Vomiting Vital Signs Vital signs: Vital Signs - 8 hr 10/04/23 10:49 10/04/23 10:51 10/04/23 10:54 Temperature 100.5 F H Pulse Rate 96 H 95 H Respiratory Rate 22 Blood Pressure 167/102 H 162/102 H Pulse Oximetry 91 97 Oxygen Delivery Method Room Air 10/04/23 11:00 10/04/23 11:00 10/04/23 11:30 Temperature Pulse Rate 98 H Respiratory Rate Blood Pressure 148/95 H 137/85 Pulse Oximetry 96 Oxygen Delivery Method 10/04/23 11:30 10/04/23 11:51 10/04/23 11:51 Temperature Pulse Rate 81 81 Respiratory Rate Blood Pressure 150/88 H Pulse Oximetry 96 96 Oxygen Delivery Method 10/04/23 12:00 10/04/23 12:00 10/04/23 12:30 Temperature Pulse Rate 65 Respiratory Rate Blood Pressure 143/81 H 149/83 H Pulse Oximetry 98 Oxygen Delivery Method 10/04/23 12:30 10/04/23 13:00 10/04/23 13:00 Temperature Pulse Rate 78 73 Respiratory Rate Blood Pressure 136/79 Pulse Oximetry 99 98 Oxygen Delivery Method 10/04/23 13:30 10/04/23 13:30 10/04/23 14:00 Temperature Pulse Rate 67 74 Respiratory Rate Blood Pressure 136/79 Pulse Oximetry 99 98 Oxygen Delivery Method 10/04/23 14:00 10/04/23 14:30 10/04/23 15:00 Temperature Pulse Rate 91 H 90 Respiratory Rate Blood Pressure 136/82 Pulse Oximetry 97 97 Oxygen Delivery Method 10/04/23 15:04 10/04/23 15:04 Temperature Pulse Rate 92 H Respiratory Rate Blood Pressure 143/90 H Pulse Oximetry 97 Oxygen Delivery Method Medical Decision Making Medical Records Medical records reviewed: Yes I reviewed the patient's medical records. Lab Data Lab results reviewed: Yes I reviewed the patient's lab results. 10/04/23 11:19 10/04/23 11:19 Labs: Lab Results 10/04/23 Range/Units 11:19 WBC 5.7 (4.5-11.0) X10^3/uL RBC 4.78 (4.0-5.2) X10^6/uL Hgb 13.8 (12.0-16.0) g/dL Hct 41.4 (36-46) % MCV 86.6 (80-100) fL MCH 28.9 (26-34) PG MCHC 33.4 (30-36) % RDW 15.7 H (11.6-14.8) % Plt Count 212 (150-400) X10^3/uL Neut % (Auto) 78.6 H (50-75) % Lymph % (Auto) 16.3 L (25-40) % Hawkins % (Auto) 4.5 (3-14) % Eos % (Auto) 0.1 L (2-4) % Baso % (Auto) 0.5 (0-2) % Neut # (Auto) 4500 (3408-3108) /uL Lymph # (Auto) 900 L (9548-3454) /uL Hawkins # (Auto) 300 (0-900) /uL Eos # (Auto) 0 (0-450) /uL Baso # (Auto) 0 (0-100) /uL PT 11.2 (9.4-12.5) SECONDS INR 1.0 (0.9-1.3) APTT 32 (25.1-36.5) SECONDS Sodium 141 (137-145) mmol/L Potassium 3.6 (3.4-5.1) mmol/L Chloride 109 H (98-107) mmol/L Carbon Dioxide 11 L (22-32) mmol/L BUN 14 (7-17) mg/dL Creatinine 0.59 (0.52-1.04) mg/dL Estimated GFR > 60 (>60) mL/min BUN/Creatinine Ratio 23.7 H (6-22) Glucose 88 (80-110) mg/dL Lactate 1.9 (0.7-2.1) mmol/L Calcium 9.7 (8.4-10.2) mg/dL Total Bilirubin 1.1 (0.2-1.3) mg/dL AST 29 (14-36) IU/L ALT 10 (<35) IU/L Alkaline Phosphatase 75 (38-126) U/L Total Protein 8.1 (6.3-8.2) g/dL Albumin 4.9 (3.5-5.0) g/dL Globulin 3.2 (1.7-4.1) g/dL Albumin/Globulin Ratio 1.5 (1.0-2.8) Lipase 58 (23-300) U/L Procalcitonin 0.039 (<0.5) ng/mL Ethyl Alcohol < 10 ( - 10) mg/dL Imaging Data Chest x-ray: Radiologist's Impression: PROCEDURE: XR CHEST 1V INDICATIONS: suspected sepsis TECHNIQUE: One view of the chest was acquired. COMPARISON: [facility], CR, XR CHEST 1V, 02/18/2023, 4:49. FINDINGS: Surgical changes and devices: None. Lungs and pleura: Lungs are clear. No pleural effusions or pneumothorax. Mediastinum: Mediastinal contours appear normal. Heart size is normal. Bones and chest wall: No suspicious bony lesions. Overlying soft tissues appear unremarkable. IMPRESSION: No acute cardiopulmonary abnormality is seen. CT scan - head: Radiologist's Impression: PROCEDURE: CT HEAD/BRAIN WO CON INDICATIONS: altered mental status TECHNIQUE: Noncontrast 4.5 mm thick angled axial sections acquired from the foramen magnum to the vertex, with coronal and sagittal reformats. For radiation dose reduction, the following was used: automated exposure control, adjustment of mA and/or kV according to patient size. COMPARISON: [facility], CT, CT HEAD/BRAIN WO CON, 02/18/2023, 5:04. FINDINGS: Image quality: Diagnostic. CSF spaces: Basal cisterns are patent. No extra-axial fluid collections. Ventricles are normal in size and shape. Brain: No midline shift. No intracranial masses or hemorrhage. Patel-white matter interface is normal. Skull and face: Calvarium and visualized facial bones are intact, without suspicious lesions. Sinuses: Visualized sinuses and mastoids are clear. IMPRESSION: No acute intracranial pathology. MDM Narrative Medical decision making narrative: Initially patient arrived and was unable/unwilling to participate in any review of systems or history. She was not answering any questions. According to her daughter who lives with her and he was also at bedside she was not acting normal and has been somewhat lethargic over the past couple days. Initially we started workup. She was afebrile. Imaging studies unremarkable. No leukocytosis. She has a very contaminated Parra catheter that was crusted and obviously has not been changed in quite some time. The existing Parra catheter was removed. While attempting to place a new Parra catheter in the patient became somewhat angry and combative. She stated that she did not want a new catheter replaced. Upon re-evaluation the patient is now alert and oriented. She knows where she is, what year it is, her date. She states she was not in any discomfort. She is now alert and oriented with a GCS of 15 and not clinically intoxicated in my opinion now has capacity to make decisions. She stated that she did not want a new catheter placed. She was able to tolerate oral intake. I had a discussion with her and her daughter at bedside regarding the concerns about a urinary tract infection however the patient did not want us to do any further checking. Patient was evaluated by social work and family refused to have any help with setting up a primary doctor or home health. Patient will be discharged in the care of her daughter who is at bedside for the discussions. Discharge Plan Departure Patient Disposition: Home Clinical Impression: Urinary incontinence Activity Restrictions/Additional Instructions: You have refused any further workup here in the emergency department there is a possibility that you have a urinary tract infection that would require antibiotics however you have declined to provide any further urine sample or allow us to obtain a urine sample. I think that you would benefit from a Parra catheter but you have refused this as well. I do recommend that you make contact with the primary care provider. You can contact [phone] during business hours and they can help establish a primary provider here in the local area. You can return to the emergency department at any point if you wish to complete your workup. Prescriptions: No Action hydrocodone-acetaminophen [Centerpoint] 5 MG/325 MG tablet 1 tab PO Q4HP PRNQty: 20 0RF chlordiazepoxide HCl 25 MG capsule 25 mg PO Q8H Qty: 14 0RF naproxen [Naprosyn] 500 MG tablet 500 mg PO Q12H Qty: 20 0RF Referrals: Bria Min ARNP [Primary Care Provider] - Stand Alone Forms: Patient Portal/API
--- NOTE | 2023-10-04 10:55 | DI.RAD.S_ITS ---
PROCEDURE: XR CHEST 1V INDICATIONS: suspected sepsis TECHNIQUE: One view of the chest was acquired. COMPARISON: [facility], CR, XR CHEST 1V, 02/18/2023, 4:49. FINDINGS: Surgical changes and devices: None. Lungs and pleura: Lungs are clear. No pleural effusions or pneumothorax. Mediastinum: Mediastinal contours appear normal. Heart size is normal. Bones and chest wall: No suspicious bony lesions. Overlying soft tissues appear unremarkable. IMPRESSION: No acute cardiopulmonary abnormality is seen. Dictated by: Celestine Clemente M.D. on 10/04/2023 at 11:39 Approved by: Celestine Clemente M.D. on 10/04/2023 at 11:40
--- NOTE | 2023-10-04 11:01 | DI.CT.S_ITS ---
PROCEDURE: CT HEAD/BRAIN WO CON INDICATIONS: altered mental status TECHNIQUE: Noncontrast 4.5 mm thick angled axial sections acquired from the foramen magnum to the vertex, with coronal and sagittal reformats. For radiation dose reduction, the following was used: automated exposure control, adjustment of mA and/or kV according to patient size. COMPARISON: [facility], CT, CT HEAD/BRAIN WO CON, 02/18/2023, 5:04. FINDINGS: Image quality: Diagnostic. CSF spaces: Basal cisterns are patent. No extra-axial fluid collections. Ventricles are normal in size and shape. Brain: No midline shift. No intracranial masses or hemorrhage. Patel-white matter interface is normal. Skull and face: Calvarium and visualized facial bones are intact, without suspicious lesions. Sinuses: Visualized sinuses and mastoids are clear. IMPRESSION: No acute intracranial pathology. Dictated by: Celestine Clemente M.D. on 10/04/2023 at 12:11 Approved by: Celestine Clemente M.D. on 10/04/2023 at 12:12
--- NOTE | 2023-10-04 11:15 | PC.NURSE ---
Entered the room with patient and daughter in room. The plan to place an IV and obtain blood was explained to the daughter and the pt. The patient soon after, asked the daughter to leave the room. I introduced myself to the patient again and explained what I was going to do. The patient the stated I want my daughter to leave. It was expressed that her daughter left and was not present. She repeated I want my daughter to leave the hospital. She was reassured that we would relay the information to her daughter. The pt began to repeat the phrase I want my daughter to leave over and over. Several attempts were made to reassure her that her daughter was not present but she kept repeating the phrase. An attempt was made to reorient and talk to her about the plan. The patient then refused to cooperate with all other care. The ED provider was notified at 11:12 of the patient's behavior and refusal of care.
[2023-10-04 11:39] LABS: Add Manual Diff / Slide Review NO; Basophils Absolute Auto 0 /uL (0-100); Basophils Percent Auto 0.5 % (0-2); Eosinophils Absolute Auto 0 /uL (0-450); Eosinophils Percent Auto 0.1 % (2-4); Hematocrit 41.4 % (36-46); Hemoglobin 13.8 g/dL (12.0-16.0); Lymphocytes Absolute Auto 900 /uL (1100-4500); Lymphocytes Percent Auto 16.3 % (25-40); Mean Corpuscular HGB Conc 33.4 % (30-36); Mean Corpuscular Hemoglobin 28.9 PG (26-34); Mean Corpuscular Volume 86.6 fL (80-100); Monocytes Absolute Auto 300 /uL (0-900); Monocytes Percent Auto 4.5 % (3-14); Neutrophils Absolute Auto 4500 /uL (1500-7000); Neutrophils Percent Auto 78.6 % (50-75); Platelet Count 212 X10^3/uL (150-400); Red Blood Cell Count 4.78 X10^6/uL (4.0-5.2); Red Cell Distribution Width 15.7 % (11.6-14.8); White Blood Cell Count 5.7 X10^3/uL (4.5-11.0)
[2023-10-04 11:48] LABS: Prothrombin Time 11.2 SECONDS (9.4-12.5)
[2023-10-04] MEDS: SODIUM CHLORIDE 0.9% 1,000 ML 1000 ML IV (11:49)
[2023-10-04] MEDS: cefTRIAXone 1,000 MG in SODIUM CHLORIDE 0.9% 100 ML 200 MG IV (11:49)
[2023-10-04 11:51] LABS: PTT Partial Thromboplastin Tim 32 SECONDS (25.1-36.5)
[2023-10-04 11:52] LABS: Lactate (Lactic Acid) 1.9 mmol/L (0.7-2.1)
[2023-10-04 12:04] LABS: Ethanol (ETOH) < 10 mg/dL
[2023-10-04 12:05] LABS: Alanine Aminotransferase 10 IU/L (<35); Albumin 4.9 g/dL (3.5-5.0); Albumin Globulin Ratio 1.5 (1.0-2.8); Alkaline Phosphatase 75 U/L (38-126); Aspartate Aminotransferase 29 IU/L (14-36); BUN Creatinine Ratio 23.7 (6-22); Bilirubin Total 1.1 mg/dL (0.2-1.3); Blood Urea Nitrogen 14 mg/dL (7-17); Calcium 9.7 mg/dL (8.4-10.2); Chloride 109 mmol/L (98-107); Estimated Glomerular Filt Rate > 60 mL/min (>60); Globulin 3.2 g/dL (1.7-4.1); Glucose 88 mg/dL (80-110); HEMOLYSIS 18 (0-50); Lipase 58 U/L (23-300); Potassium 3.6 mmol/L (3.4-5.1); Sodium 141 mmol/L (137-145); Total Protein 8.1 g/dL (6.3-8.2)
--- NOTE | 2023-10-04 12:11 | PC.NURSE ---
The patient's catheter was removed and a new one was attempted to be replaced. The patient asked us to stop the procedure. It was explained that an indwelling cath was ordered by the provider to treat her condition and the patient stated Do I care, no...so get out. PRISM MEASURER consult has been ordered. Provider is aware of pt noncompliance. Daughter to be consulted about pt care options. IV fluids and abx are being infused currently. Patient was interviewed again for alertness and orientation: Patient is alert and oriented to self, place, and situation but not time, day, or her age. She stated that she does not want any care today and just wants to be sent home.
[2023-10-04 12:12] LABS: Carbon Dioxide 11 mmol/L (22-32)
[2023-10-04 12:21] LABS: Procalcitonin 0.039 ng/mL (<0.5)
--- NOTE | 2023-10-04 12:36 | PC.NURSE ---
attempted to get nasal swab for respiratory panel and pt refused stating that she wants to go home.
--- NOTE | 2023-10-04 13:07 | PC.NURSE ---
consulted pt. Provider orders updated: po fluids okayyed and encouraged urine sample.
--- NOTE | 2023-10-04 14:22 | PC.NURSE ---
Patient was interviewed by the provider again and the patient refused care. Provider asked RESTAURANT OPERATIONS MANAGER to to consult and offer services. RESTAURANT OPERATIONS MANAGER at bedside
--- NOTE | 2023-10-04 14:32 | CM.SWNOTE ---
ED BASEBALL PLAYER Note BASEBALL PLAYER receives consult due to concern for patient's initial AMS and presenting to ED with nolen cath that has not been managed by Urology in several months. Patient was transferred to [facility] in February 2023 for Acute Renal Failure and Urinary Retention. Per records patient d/c with nolen, Urology f/u in [place] and [facility]. Patient and daughter state that patient does not have PCP, patient has [facility]. In EMR, PCP Bria Novoa is listed and both patient and daughter deny this provider being PCP and deny that patient has PCP. It is reported by daughter that patient was discharged from Urology because she could urinate independently and the nolen was left in. BASEBALL PLAYER enters room to meet with patient and daughter, patient presents as A/Ox3. Patient is 73 y/o female who resides in [place] with daughter Jena. Patient and daughter state that patient uses [facility] at home and ambulates well and if patient needs assistance with anything daughter is there to assist. BASEBALL PLAYER offers to establish care with PCP for patient but patient declines. BASEBALL PLAYER discusses that if patient needs urology again patient will likely need PCP for local Urology referral. BASEBALL PLAYER encourages patient to get established with PCP. Patient and daughter decline concerns and patient expresses desire to d/c to home. ED provider to d/c patient upon medical clearance. The ED was unable to get a urine sample from patient during this ED visit. BASEBALL PLAYER provides daughter with senior resource guide. Plan: patient to d/c to home with daughter upon medical clearance, patient encouraged to establish care with PCP. Sonia Novak, PERSONNEL GENERALIST MANAGER
== END 2023-10-04 15:03 | disposition home or self-care (01) ==
PROVIDERS: Emergency Provider Emergency Medicine; Family Provider Nurse Practitioner Family; PCP Nurse Practitioner Family
DX: R32 Unspecified urinary incontinence (principal)
CPT/HCPCS: 36415; 70450; 71045; 80053; 80320; 83605; 83690; 84145; 85025; 85610; 85730; 87040; 96365; 99284; J0696

== ENCOUNTER 2023-10-04 16:17 | Emergency (ER) | payer MEDICARE, SELFPAY ==
[2023-10-04 16:19] VITALS: BP 137/83; PULSE 114; RESP 18; TEMP 37.1; O2SAT 96
== END 2023-10-04 18:42 | disposition left against medical advice (07) ==
PROVIDERS: Emergency Provider Emergency Medicine; Family Provider Nurse Practitioner Family; PCP Nurse Practitioner Family
DX: R53.83 Other fatigue (principal)
CPT/HCPCS: 99281